=== PATIENT | female | born 1965 | race Caucasian/White ===

== ENCOUNTER 2016-10-06 10:47 | Day surgery (SDC) | payer BC ==
[~2016-10-06] VITALS: Ht 162.6 cm; Wt 68.0 kg
[~2016-10-06 10:47] MED LIST: ACETAMINOPHEN325 M3 PO; ASPIR-TRIN325 M1 PO; AVALIDE 150-121 EACH PO; AVALIDE 150/1 TABLET PO; LORADAMED10 MG PO; LOSARTAN-HCTZ1 EAC2 PO; MAGNESIUM400 M1 PO; MOVE IT ALONG100 MG PO; Maalox, Mylanta PO; POTASSIUM CHLO20 ME1 PO; PROCHLORPERAZINE5 MG PO; Prilosec PO; ROXICODONE5 MG PO; TRETINOIN10 MG PO; ULTRAM50 MG PO; ZOVIRAX800 M1 PO; ZUPLENZ8 MG PO
== END 2016-10-06 16:45 | disposition home or self-care (01) ==
LOC: CATH 10:47
PROC: 02HV33Z Insertion of Infusion Device into Superior Vena Cava, Percutaneous Approach (ICD-10-PCS; principal; 2016-10-06)
DX: C50.919 Malignant neoplasm of unspecified site of unspecified female breast (principal); I10 Essential (primary) hypertension; C95.91 Leukemia, unspecified, in remission
CPT/HCPCS: C1752; C1894; J1644; J2250; J3010; S0020

== ENCOUNTER → 2017-02-02 | Outpatient (CLI) | payer BC | END | disposition home or self-care (01) | LOC: CDC 12:47 | DX: C92.40 Acute promyelocytic leukemia, not having achieved remission (principal) | CPT/HCPCS: 93000 ==

== ENCOUNTER → 2017-05-29 | Outpatient (CLI) | payer BC | END | disposition home or self-care (01) | LOC: AMB 08:26 | DX: Z45.2 Encounter for adjustment and management of vascular access device (principal); I87.8 Other specified disorders of veins; Z92.21 Personal history of antineoplastic chemotherapy ==